=== PATIENT | female | born 1970 | race Caucasian/White ===

== ENCOUNTER 2017-01-03 11:46 | Emergency (ER) | payer MEDICAID ==
[~2017-01-03] VITALS: Ht 170.2 cm; Wt 54.0 kg
[~2017-01-03 11:46] MED LIST: DILA2TAB2 PO; FOLI1TAB4 PO; LORA-474 PO; NITR0.4S SL; PANT40TA3 PO; VITA100T2 PO
[2017-01-03 11:48] VITALS: BP 118/84; PULSE 102; RESP 20; TEMP 99.1; O2SAT 94
[2017-01-03] MEDS ORDERED: SODIUM CHLORIDE 0.9% FLUSH 10 ML FLUSH IV FLUSH PRN (15:45)
--- NOTE | 2017-01-03 15:55 | PD ---
HPI Chief Complaint: Pain: Acute or Chronic Time Seen by Provider: 15:49 Travel History International Travel<30 days: No Contact w/Intl Traveler<30days: No Traveled to known affect area: No History of Present Illness HPI 38-year-old female presents to the emergency department for evaluation of the paracentesis catheter to her abdomen. Patient states that she is currently on because hospice, but is now revoking that to get her catheter fixed. She states for the past 2-3 weeks, she has noticed severe pain in her lower abdomen with a drain her catheter. The hospice nurses drain her catheter. She states that she last had it drained last Monday, December 28. She states they usually get to canisters, but when they are on the second canister, she has to have them stop it because of the pain. Patient states that she has liver disease. She will not give me a reason as to why she has liver disease. She also reports left-sided chest pain that has been getting worse. She states she has had left-sided chest pain for several years. She last had it approximate 1.5 hours ago and took a nitroglycerin which resolved her pain. She states that she has a lot of aggravating factors including cold air, stress. Patient denies any chest pain or shortness of breath at this time. Patient states she had a stent placed approximately 10 years ago. According to my records, she had a normal stress test done here on April 05, 2016. She had the same complaints of chest pain that gets relieved with nitroglycerin. It was thought to be more due to her hepatitis than cardiac disease. PFSH Past Medical History Arthritis: Yes Cardiovascular Problems: Yes Chest Pain: Yes Headaches: Yes Hypertension: Yes Musculoskeletal: Yes Neurologic: Yes (BLURRED VISION OCCAS.) Reproductive: No ?: Not Past Surgical History Gynecologic Surgery: Yes ( X 2) Social History Alcohol Use: Yes (2 GLASSES BEER OR WINE / DAY) Tobacco Use: Yes (I PPD) Substance Use: No Allergies-Medications (Allergen,Severity, Reaction): Coded Allergies: No Known Allergies (Verified , 01/03/17) Reported Meds & Prescriptions Reported Meds & Active Scripts Active Ativan (Lorazepam) 1 Mg Tab 1 Mg PO Q8H PRN not to take with dilaudid Vitamin B-1 (Thiamine HCl) 100 Mg Tab 100 Mg PO DAILY Pantoprazole (Pantoprazole Sodium) 40 Mg Tab 40 Mg PO DAILY Dilaudid (Hydromorphone HCl) 2 Mg Tab 2 Mg PO Q6H PRN Folate (Folic Acid) 1 Mg Tab 1 Mg PO DAILY Reported Nitrostat SL (Nitroglycerin) 0.4 Mg Subl 0.4 Mg SL DIRECTED PRN ONE TABLET UNDER THE TONGUE NEEDED FOR CHEST PAIN, MAY REPEAT EVERY FIVE MINUTES FOR A TOTAL OF 3 DOSES OR CALL 911 IF NO RELIEF Review of Systems Except as stated in HPI: all other systems reviewed are Neg Physical Exam Narrative GENERAL: Well-nourished, well-developed female patient, afebrile. SKIN: Focused skin assessment warm/dry. HEAD: Normocephalic. Atraumatic. EYES: No scleral icterus. No injection or drainage. NECK: Supple, trachea midline. No JVD or lymphadenopathy. CARDIOVASCULAR: Regular rate and rhythm without murmurs, gallops, or rubs. Bilateral radial and pedal pulses 2+. RESPIRATORY: Breath sounds equal bilaterally. No accessory muscle use. Lungs sounds are clear to auscultation GASTROINTESTINAL: Abdomen distended. She has a catheter to the right upper quadrant. No drainage. No erythema. She has tenderness to palpation of the lower abdomen. MUSCULOSKELETAL: No cyanosis. Bilateral 1+ lower extremity edema. BACK: Nontender without obvious deformity. No CVA tenderness. Data Data Last Documented VS Vital Signs Date Time Temp Pulse Resp B/P Pulse Ox O2 Delivery O2 Flow Rate FiO2 01/03/17 17:38 112/84 Automatic Cuff 01/03/17 16:12 21 94 Room Air 01/03/17 11:48 99.1 102 Orders Complete Blood Count With Diff (01/03/17 15:45) Comprehensive Metabolic Panel (01/03/17 15:45) Lipase (01/03/17 15:45) Prothrombin Time / Inr (Pt) (01/03/17 15:45) Act Partial Throm Time (Ptt) (01/03/17 15:45) Ct Abd/Pel W Iv Contrast(Rout) (01/03/17 15:45) Iv Access Insert/Monitor (01/03/17 15:45) Ecg Monitoring (01/03/17 15:45) Oximetry (01/03/17 15:45) Sodium Chloride 0.9% Flush (Ns Flush) (01/03/17 15:45) Electrocardiogram (01/03/17 15:45) Urinalysis - C+S If Indicated (01/03/17 15:45) Ed Urine Pregnancytest Poc (01/03/17 15:45) Creatine Kinase (Cpk) (01/03/17 15:45) Troponin I (01/03/17 15:45) Chest, Single Ap (01/03/17 ) B-Type Natriuretic Peptide (01/03/17 15:45) Iohexol 350 Inj (Omnipaque 350 Inj) (01/03/17 18:20) Ketorolac Inj (Toradol Inj) (01/03/17 18:30) Labs Laboratory Tests Test 01/03/17 16:00 White Blood Count 10.5 TH/MM3 Red Blood Count 4.48 MIL/MM3 Hemoglobin 13.5 GM/DL Hematocrit 40.7 % Mean Corpuscular Volume 91.0 FL Mean Corpuscular Hemoglobin 30.2 PG Mean Corpuscular Hemoglobin 33.2 % Concent Red Cell Distribution Width 18.6 % Platelet Count 252 TH/MM3 Mean Platelet Volume 7.2 FL Neutrophils (%) (Auto) 66.0 % Lymphocytes (%) (Auto) 20.4 % Monocytes (%) (Auto) 11.3 % Eosinophils (%) (Auto) 1.0 % Basophils (%) (Auto) 1.3 % Neutrophils # (Auto) 7.0 TH/MM3 Lymphocytes # (Auto) 2.1 TH/MM3 Monocytes # (Auto) 1.2 TH/MM3 Eosinophils # (Auto) 0.1 TH/MM3 Basophils # (Auto) 0.1 TH/MM3 CBC Comment DIFF FINAL Differential Comment Prothrombin Time 11.4 SEC Prothromb Time International 1.0 RATIO Ratio Activated Partial 27.5 SEC Thromboplast Time Urine Color YELLOW Urine Turbidity CLEAR Urine pH 6.0 Urine Specific [place] 1.008 Urine Protein NEG mg/dL Urine Glucose (UA) NEG mg/dL Urine Ketones NEG mg/dL Urine Occult Blood NEG Urine Nitrite NEG Urine Bilirubin NEG Urine Urobilinogen LESS THAN 2.0 MG/DL Urine Leukocyte Esterase NEG Urine WBC LESS THAN 1 /hpf Microscopic Urinalysis Comment CULT NOT INDICATED Sodium Level 137 MEQ/L Potassium Level 3.8 MEQ/L Chloride Level 101 MEQ/L Carbon Dioxide Level 26.5 MEQ/L Anion Gap 10 MEQ/L Blood Urea Nitrogen 9 MG/DL Creatinine 0.58 MG/DL Estimat Glomerular Filtration 111 ML/MIN Rate Random Glucose 76 MG/DL Calcium Level 8.7 MG/DL Total Bilirubin 0.4 MG/DL Aspartate Amino Transf 33 U/L (AST/SGOT) Alanine Aminotransferase 17 U/L (ALT/SGPT) Alkaline Phosphatase 277 U/L Total Creatine Kinase 37 U/L Troponin I LESS THAN 0.02 NG/ML B-Type Natriuretic Peptide 104 PG/ML Total Protein 7.0 GM/DL Albumin 2.3 GM/DL Lipase 84 U/L [facility] Medical Decision Making Medical Screen Exam Complete: Yes Emergency Medical Condition: Yes Medical Record Reviewed: Yes Interpretation(s) chest x-ray - CONCLUSION: 1. No acute cardiopulmonary findings. CT abdomen/pelvis - CONCLUSION: 1. Moderate ascites present. The peritoneal drainage catheter appears appropriately positioned and grossly intact. 2. Mild hepatomegaly. No focal hepatic lesions seen. Patent portal vein. 3. Small right pleural effusion. Also trace atelectasis of the visualized lung bases. Differential Diagnosis Malfunctioning paracentesis drain versus liver disease versus UTI Narrative Course 46-year-old female presents to the emergency department for evaluation of her paracentesis drain that has been causing her more severe pain recently. She also complains of intermittent left-sided chest pain. I reviewed her records that she had the same complaint in March. She had an unremarkable stress test done at that time. EKG, CBC, CMP, lipase, UA, CK, troponin, PTT, PT/INR, BNP, chest x-ray, CT abdomen/pelvis are ordered and pending. EKG shows SR, HR 92, no acute ST changes. CBC shows no acute abnormality. CMP shows elevated alkaline phosphatase of 277, no acute abnormality. Lipase is 84. BNP is 104. CK is 37. Troponin is less than 0.02. UA is negative. Coags show no acute abnormality. Chest x-ray shows no acute cardiopulmonary findings. CT abdomen/pelvis shows moderate ascites present. The peritoneal drainage catheter appears appropriately positioned and grossly intact; mild hepatomegaly. No focal hepatic lesions seen. Patent portal vein; Small right pleural effusion. Also trace atelectasis of the visualized lung bases. My attending physician, Dr. Berry, examined patient as well. He is aware of all findings and agrees with plan and disposition. Patient is instructed to follow- up with her hospice doctor. If she decides to revoke hospice, she is probably her primary care physician. She verbalizes agreement. The patient was discharged in stable condition with instructions, including return instructions and follow up instructions. Diagnosis Primary Impression: Chronic liver disease and cirrhosis Referrals: Primary Care Physician call for appointment Patient Instructions: Ascites (ED), General Instructions Additional Instructions: Follow-up with your hospice doctor or primary care physician. Return to the emergency department for any acute worsening of symptoms. Med/Other Pt SpecificInfo: No Change to Meds Disposition: 01 DISCHARGE HOME Condition: Stable Keyona Agee KARLENE Jan 03, 2017 15:55
[2017-01-03 16:12] VITALS: RESP 21; O2SAT 94
--- NOTE | 2017-01-03 16:41 | RADRPT ---
EXAM DATE/TIME: 01/03/2017 15:52 [facility] COMPARISON: ABDOMEN KUB ONLY, April 08, 2016, 11:55. INDICATIONS : Chest pain. MEDICAL HISTORY : Cirrhosis. Cardiovascular disease. Hypertension. SURGICAL HISTORY : Coronary artery stent. catheter in stomach for fluid removal, hx of many paracentesis. ENCOUNTER: Initial ACUITY: 1 day PAIN SCORE: 5/10 LOCATION: Bilateral chest FINDINGS: A single view of the chest demonstrates the lungs to be symmetrically aerated without evidence of mas s, infiltrate or effusion. The cardiomediastinal contours are unremarkable. Osseous structures are intact. CONCLUSION: 1. No acute cardiopulmonary findings. Steven Candelaria MD on January 03, 2017 at 16:39 Board Certified Radiologist. This report was verified electronically.
[2017-01-03 17:25] LABS: BASOPHIL # 0.1 TH/MM3 (0-0.2); BASOPHIL % 1.3 % (0.0-2.0); EOSINOPHIL # 0.1 TH/MM3 (0-0.4); HEMATOCRIT 40.7 % (35.0-46.0); HEMO FLAGS DIFF FINAL; LYMPH % 20.4 % (9.0-44.0); LYMPHOCYTE # 2.1 TH/MM3 (1.0-4.8); MEAN CORPUSCULAR HEMOGLOBIN 30.2 PG (27.0-34.0); MEAN CORPUSCULAR HGB CONC 33.2 % (32.0-36.0); MONO % 11.3 % (0.0-8.0); PLATELET COUNT 252 TH/MM3 (150-450); RED BLOOD COUNT 4.48 MIL/MM3 (4.00-5.30); RED CELL DISTRIBUTION WIDTH 18.6 % (11.6-17.2); WHITE BLOOD COUNT 10.5 TH/MM3 (4.0-11.0)
[2017-01-03 17:34] LABS: BLOOD, URINE NEG (NEG); COMMENT (UR) CULT NOT INDICATED; CULTURE IF INDICATED CULT NOT INDICATED; GLUCOSE,URINE NEG (NEG); KETONE, URINE NEG (NEG); NITRITE,URINE NEG (NEG); URINE COLOR YELLOW (YELLW/STRAW)
[2017-01-03 17:38] VITALS: BP 112/84
[2017-01-03 17:38] LABS: APTT (PATIENT) 27.5 SEC (24.3-30.1); PROTHROMBIN TIME - PATIENT 11.4 SEC (9.8-11.6)
[2017-01-03 17:49] LABS: ALT (GPT) 17 U/L (10-53); ANION GAP 10 MEQ/L (5-15); AST (GOT) 33 U/L (15-37); BICARBONATE 26.5 MEQ/L (21.0-32.0); BLOOD UREA NITROGEN 9 MG/DL (7-18); CHLORIDE 101 MEQ/L (98-107); GLOMERULAR FILTRATION RATE 111 ML/MIN (>89); POTASSIUM 3.8 MEQ/L (3.5-5.1); SODIUM (NA) 137 MEQ/L (136-145)
[2017-01-03 17:53] LABS: ALKALINE PHOSPHATASE 277 U/L (45-117); TOTAL BILIRUBIN ADULT 0.4 MG/DL (0.2-1.0)
[2017-01-03 17:55] LABS: CREATINE KINASE 37 U/L (26-192)
[2017-01-03] MEDS ORDERED: IOHEXOL 350 MG/ML 10 ML VIAL (for RAD DIAG) IV ONE (18:20)
[2017-01-03] MEDS ORDERED: KETOROLAC TROMETHAMINE 30 MG/ML (IVP) VIAL IV PUSH ONE (18:30)
--- NOTE | 2017-01-03 18:31 | PD ---
Data Data Last Documented VS Vital Signs Date Time Temp Pulse Resp B/P Pulse Ox O2 Delivery O2 Flow Rate FiO2 01/03/17 17:38 112/84 Automatic Cuff 01/03/17 16:12 21 94 Room Air 01/03/17 11:48 99.1 102 Orders Complete Blood Count With Diff (01/03/17 15:45) Comprehensive Metabolic Panel (01/03/17 15:45) Lipase (01/03/17 15:45) Prothrombin Time / Inr (Pt) (01/03/17 15:45) Act Partial Throm Time (Ptt) (01/03/17 15:45) Ct Abd/Pel W Iv Contrast(Rout) (01/03/17 15:45) Iv Access Insert/Monitor (01/03/17 15:45) Ecg Monitoring (01/03/17 15:45) Oximetry (01/03/17 15:45) Sodium Chloride 0.9% Flush (Ns Flush) (01/03/17 15:45) Electrocardiogram (01/03/17 15:45) Urinalysis - C+S If Indicated (01/03/17 15:45) Ed Urine Pregnancytest Poc (01/03/17 15:45) Creatine Kinase (Cpk) (01/03/17 15:45) Troponin I (01/03/17 15:45) Chest, Single Ap (01/03/17 ) B-Type Natriuretic Peptide (01/03/17 15:45) Iohexol 350 Inj (Omnipaque 350 Inj) (01/03/17 18:20) Ketorolac Inj (Toradol Inj) (01/03/17 18:30) Labs Laboratory Tests Test 01/03/17 16:00 White Blood Count 10.5 TH/MM3 Red Blood Count 4.48 MIL/MM3 Hemoglobin 13.5 GM/DL Hematocrit 40.7 % Mean Corpuscular Volume 91.0 FL Mean Corpuscular Hemoglobin 30.2 PG Mean Corpuscular Hemoglobin 33.2 % Concent Red Cell Distribution Width 18.6 % Platelet Count 252 TH/MM3 Mean Platelet Volume 7.2 FL Neutrophils (%) (Auto) 66.0 % Lymphocytes (%) (Auto) 20.4 % Monocytes (%) (Auto) 11.3 % Eosinophils (%) (Auto) 1.0 % Basophils (%) (Auto) 1.3 % Neutrophils # (Auto) 7.0 TH/MM3 Lymphocytes # (Auto) 2.1 TH/MM3 Monocytes # (Auto) 1.2 TH/MM3 Eosinophils # (Auto) 0.1 TH/MM3 Basophils # (Auto) 0.1 TH/MM3 CBC Comment DIFF FINAL Differential Comment Prothrombin Time 11.4 SEC Prothromb Time International 1.0 RATIO Ratio Activated Partial 27.5 SEC Thromboplast Time Urine Color YELLOW Urine Turbidity CLEAR Urine pH 6.0 Urine Specific [place] 1.008 Urine Protein NEG mg/dL Urine Glucose (UA) NEG mg/dL Urine Ketones NEG mg/dL Urine Occult Blood NEG Urine Nitrite NEG Urine Bilirubin NEG Urine Urobilinogen LESS THAN 2.0 MG/DL Urine Leukocyte Esterase NEG Urine WBC LESS THAN 1 /hpf Microscopic Urinalysis Comment CULT NOT INDICATED Sodium Level 137 MEQ/L Potassium Level 3.8 MEQ/L Chloride Level 101 MEQ/L Carbon Dioxide Level 26.5 MEQ/L Anion Gap 10 MEQ/L Blood Urea Nitrogen 9 MG/DL Creatinine 0.58 MG/DL Estimat Glomerular Filtration 111 ML/MIN Rate Random Glucose 76 MG/DL Calcium Level 8.7 MG/DL Total Bilirubin 0.4 MG/DL Aspartate Amino Transf 33 U/L (AST/SGOT) Alanine Aminotransferase 17 U/L (ALT/SGPT) Alkaline Phosphatase 277 U/L Total Creatine Kinase 37 U/L Troponin I LESS THAN 0.02 NG/ML B-Type Natriuretic Peptide 104 PG/ML Total Protein 7.0 GM/DL Albumin 2.3 GM/DL Lipase 84 U/L MDM Supervised Visit with LEONARDO: Yes Narrative Course The history, exam, and medical decision-making in the associated mid-level provider note were completed with my assistance. I reviewed and agree with the findings presented. I attest that I had a [id number] encounter with the patient on the same day, and personally performed and documented my assessment and findings in the medical record. *My assessment and Findings: 38 year-old woman end-stage liver disease, presents with pain when she drains her ascites fluid with her paracentesis catheter, as well as some chest pain. She's had recent workup for cardiac chest pain it was negative. She is on hospice. I spoke with interventional radiology about her paracentesis catheter. Pain is only at the very in the paracentesis, they say normally omentum get stuck to it. They recommend less frequent drainage or draining a smaller amount. This is related to the patient. Recommend outpatient follow- up with her hospice doctor, or her primary physician if she wishes to resend hospice. Richard Berry MD Jan 03, 2017 18:31
--- NOTE | 2017-01-03 18:40 | RADRPT ---
EXAM DATE/TIME: 01/03/2017 18:17 [facility] COMPARISON: CT ABDOMEN & PELVIS W CONTRAST, April 04, 2016, 20:27. INDICATIONS : Lower abdomen pain, catheter is not draining. IV CONTRAST: 75 cc Omnipaque 350 (iohexol) IV ORAL CONTRAST: No oral contrast ingested. RADIATION DOSE: 6.04 CTDIvol (mGy) MEDICAL HISTORY : Cardiovascular disease. Hypertension. SURGICAL HISTORY : None. ENCOUNTER: Initial ACUITY: 1 day PAIN SCALE: 5 LOCATION: Right and left lower quadrants TECHNIQUE: Volumetric scanning of the abdomen and pelvis was performed. Using automated exposure control and ad justment of the mA and/or kV according to patient size, radiation dose was kept as low as reasonably achievable to obtain optimal diagnostic quality images. DICOM format image data is available electro nically for review and comparison. FINDINGS: Enlarged and mildly heterogeneous liver noted, improved relative to the prior CT. Liver is currently about 19.8 cm craniocaudal. No focal hepatic lesions seen. Spleen, pancreas, adrenal glands and kidneys are all within normal limits. No obstruction or acute inflammatory changes are seen of the gastrointestinal tract. There is moderate volume ascites, was only trace previous. There is a peritoneal drainage catheter wh ich appears appropriately positioned in the lower peritoneal space, tip in the left side of the pelvi c cavity. It enters the right lower quadrant. No loculated fluid. Mild bibasilar atelectasis noted. There is a small pleural effusion seen on the right. CONCLUSION: 1. Moderate ascites present. The peritoneal drainage catheter appears appropriately positioned and gr ossly intact. 2. Mild hepatomegaly. No focal hepatic lesions seen. Patent portal vein. 3. Small right pleural effusion. Also trace atelectasis of the visualized lung bases. Erasmo Gallardo MD on January 03, 2017 at 18:35 Board Certified Radiologist. This report was verified electronically.
--- NOTE | 2017-01-04 00:33 | EKG ---
Date Performed: 01/03/2017 Time Performed: 16:35:45 PTAGE: 46 years EKG: Sinus rhythm NORMAL ECG PREVIOUS TRACING : 01/03/2017 16.29 Compared to prior tracing no significant change DOCTOR: Arsh Weathers Interpretating Date/Time 01/06/2017 08:05:28
== END 2017-01-03 19:30 | disposition home or self-care (01) ==
LOC: NEPC 11:46
DX: K74.60 Unspecified cirrhosis of liver (principal); R18.8 Other ascites; I10 Essential (primary) hypertension; F17.290 Nicotine dependence, other tobacco product, uncomplicated
CPT/HCPCS: 71010; 74177; 80053; 81001; 82550; 83690; 83880; 84484; 84703; 85025; 85610; 85730; 93005; 96374; 99285; J1885; Q9967